=== PATIENT | female | born 1950 | race Caucasian/White ===

== ENCOUNTER 2021-10-05 10:15 | Emergency (ER) | payer OTHER ==
[~2021-10-05] VITALS: Ht 154.9 cm; Wt 59.0 kg
[~2021-10-05 10:15] MED LIST: ATOR20 PO; CALC.25 PO; HYDACE10B PO; LOSA50 PO; RISEDRONATE SOD35 M1 PO; TRAZ100 PO
[2021-10-05] MEDS ORDERED: SILVADENE20 G3 TOP (11:16)
== END 2021-10-05 12:17 | disposition home or self-care (01) ==
LOC: ER 10:15
DX: T24.212A Burn of second degree of left thigh, initial encounter (principal); T24.211A Burn of second degree of right thigh, initial encounter; T31.0 Burns involving less than 10% of body surface; I10 Essential (primary) hypertension; M19.90 Unspecified osteoarthritis, unspecified site; X10.0XXA Contact with hot drinks, initial encounter
CPT/HCPCS: 16020; 99283-25

== ENCOUNTER 2021-10-08 09:28 | Emergency (ER) | payer OTHER ==
[~2021-10-08] VITALS: Ht 162.6 cm; Wt 56.7 kg
[~2021-10-08 09:28] MED LIST changes: +SILVADENE20 G3 TOP
[2021-10-08] MEDS ORDERED: Xeroform Petro1 EAC3 TOP (10:17)
== END 2021-10-08 11:12 | disposition home or self-care (01) ==
LOC: ER 09:28
DX: T24.212D Burn of second degree of left thigh, subsequent encounter (principal); T31.0 Burns involving less than 10% of body surface; I10 Essential (primary) hypertension; K21.9 Gastro-esophageal reflux disease without esophagitis; E78.5 Hyperlipidemia, unspecified; Z88.6 Allergy status to analgesic agent; Z79.899 Other long term (current) drug therapy; X10.0XXD Contact with hot drinks, subsequent encounter
CPT/HCPCS: 99282-25

== ENCOUNTER 2021-11-09 05:34 | Day surgery (SDC) | payer OTHER ==
[~2021-11-09 05:34] MED LIST changes: +Xeroform Petro1 EAC3 TOP
== END 2021-11-09 23:56 | disposition home or self-care (01) ==
LOC: WOUND 05:34
DX: T24.211A Burn of second degree of right thigh, initial encounter (principal); X10.0XXA Contact with hot drinks, initial encounter; L89.309 Pressure ulcer of unspecified buttock, unspecified stage; L73.9 Follicular disorder, unspecified; Z88.6 Allergy status to analgesic agent
CPT/HCPCS: A9270; G0463

== ENCOUNTER 2021-11-30 07:41 | Day surgery (SDC) | payer OTHER | END 2021-11-30 23:59 | disposition home or self-care (01) | LOC: WOUND 07:41 | DX: T24.211D Burn of second degree of right thigh, subsequent encounter (principal); X08.8XXD Exposure to other specified smoke, fire and flames, subsequent encounter; L89.309 Pressure ulcer of unspecified buttock, unspecified stage; L73.9 Follicular disorder, unspecified | CPT/HCPCS: G0463 ==

== ENCOUNTER → 2022-05-17 | Outpatient (CLI) | payer OTHER | END | disposition home or self-care (01) | LOC: LAB 15:48 → LAB SHORT 15:48 | DX: R82.998 Other abnormal findings in urine (principal) | CPT/HCPCS: 87077; 87086; 87186 ==

== ENCOUNTER 2022-07-18 10:53 | Emergency (ER) | payer OTHER ==
[~2022-07-18] VITALS: Ht 160 cm; Wt 63.5 kg
[~2022-07-18 10:53] MED LIST changes: +CEPH500 PO; +OXYC5 PO
[2022-07-18 12:36] LABS: Free Thyroxine 1.3 ng/dL (0.70-1.60); Thyroid Stimulating Hormone 2.55 uIU/mL (0.360-4.800); Triiodothyronine, Free 2.32 pg/mL (2.18-3.98)
== END 2022-07-18 15:49 | disposition home or self-care (01) ==
LOC: ER 10:53
PROVIDERS: Emergency Medicine
DX: R44.0 Auditory hallucinations (principal); K21.9 Gastro-esophageal reflux disease without esophagitis; E78.5 Hyperlipidemia, unspecified; I12.9 Hypertensive chronic kidney disease with stage 1 through stage 4 chronic kidney disease, or unspecified chronic kidney disease; N18.9 Chronic kidney disease, unspecified; Z79.899 Other long term (current) drug therapy; Z88.6 Allergy status to analgesic agent
CPT/HCPCS: 36415; 70450; 84439; 84443; 84481; J7030

== ENCOUNTER → 2022-07-24 | Outpatient (CLI) | payer OTHER ==
[2022-07-24 16:07] LABS: Appearance, Urine Clear (Clear); Bilirubin, Urine Neg (Neg); Blood, Urine Neg (Neg); Color, Urine Yellow (P-Yellow); Glucose Qualitative, Urine Neg (Neg); Ketones, Urine Neg (Neg); Leukocyte Esterase, Urine Neg (Neg); Nitrite, Urine Neg (Neg); Protein, Urine 3+ (Neg); Specific Gravity, Urine 1.015 (1.003-1.022); Urobilinogen, Urine NORM (Normal)
[2022-07-24 16:40] LABS: White Blood Cells, Urine 0-2 /hpf (0-5)
[2022-07-24 16:41] LABS: Bacteria Few /hpf; Red Blood Cells, Urine 0-2 /hpf (0-2); Squamous Epithelial Cells Few /hpf (Few); Transitional Epithelial Cells Few /hpf (0-Rare); Yeast/Fungi Urine Rare /hpf
== END | disposition home or self-care (01) ==
LOC: LAB SHORT 11:30
PROVIDERS: Family Medicine
DX: N39.0 Urinary tract infection, site not specified (principal)
CPT/HCPCS: 81001; 87086

== ENCOUNTER 2022-08-07 13:01 | Inpatient (IN) | payer OTHER ==
[~2022-08-07] VITALS: Ht 165.1 cm; Wt 58.8 kg
[2022-08-07 13:31] LABS: BASOPHILS ABSOLUTE AUTO 0.03 K/mm3 (0.00-0.23); BASOPHILS PERCENT AUTO 0 % (0-2); EOSINOPHILS ABSOLUTE AUTO 0.03 K/mm3 (0.00-0.68); EOSINOPHILS PERCENT AUTO 0 % (0-6); Hematocrit 42.8 % (33.0-51.0); Hemoglobin 13.2 g/dL (11.5-16.0); IMMATURE GRAN ABSOLUTE AUTO 0.04 K/mm3 (0.00-0.10); IMMATURE GRAN PERCENT AUTO 1 % (0-1); LYMPHOCYTES ABSOLUTE AUTO 1.05 K/mm3 (0.84-5.20); LYMPHOCYTES PERCENT AUTO 13 % (21-46); MONOCYTES ABSOLUTE AUTO 0.85 K/mm3 (0.16-1.47); MONOCYTES PERCENT AUTO 10 % (4-13); Mean Corpuscular HGB 32.8 pg (26.0-34.0); Mean Corpuscular HGB Conc 30.8 g/dL (31.5-36.5); Mean Corpuscular Volume 106 fL (80-100); Mean Platelet Volume 9.4 fL (9.1-12.4); NEUTROPHILS ABSOLUTE AUTO 6.21 K/mm3 (1.96-9.15); NEUTROPHILS PERCENT AUTO 76 % (41-73); Platelet Count 155 K/mm3 (150-400); RDW Coefficient Variation 13.7 % (11.7-14.2); RDW Standard Deviation 53.6 fL (35.1-46.3); Red Blood Cell Count 4.03 M/mm3 (3.80-5.20); White Blood Cell Count 8.21 K/mm3 (4.00-11.30)
[2022-08-07 13:34] LABS: Source, Urine Fem Cath
[2022-08-07 13:48] LABS: Appearance, Urine Hazy (Clear); Bilirubin, Urine Neg (Neg); Blood, Urine Neg (Neg); Color, Urine Yellow (P-Yellow); Glucose Qualitative, Urine Neg (Neg); Ketones, Urine Neg (Neg); Leukocyte Esterase, Urine 2+ (Neg); Nitrite, Urine Neg (Neg); Protein, Urine 2+ (Neg); Specific Gravity, Urine 1.015 (1.003-1.022); Urobilinogen, Urine NORM (Normal)
[2022-08-07 13:49] LABS: Albumin, Blood 3.4 g/dL (3.4-5.0); Albumin/Globulin Ratio 1.2 (0.8-1.8); Bilirubin, Total 0.6 mg/dL (0.1-1.0); Bun/Creatinine Ratio 42.7 (12.0-20.0); Calcium, Blood 9.3 mg/dL (8.5-10.1); Creatinine, Blood 1.5 mg/dL (0.40-1.00); Globulin, Blood 2.8 g/dL (2.2-4.0); Potassium, Blood 4.8 mmol/L (3.5-5.5); Total Protein, Blood 6.2 g/dL (6.4-8.2)
[2022-08-07 14:07] LABS: Hyaline Casts 0-2 /lpf (0-2); White Blood Cells, Urine 25-50 /hpf (0-5)
[2022-08-07 14:08] LABS: Renal Epithelial Rare /hpf (0-Rare)
[2022-08-07 14:09] LABS: Bacteria Many /hpf; Red Blood Cells, Urine 0-2 /hpf (0-2); Squamous Epithelial Cells Few /hpf (Few)
--- NOTE | 2022-08-07 19:39 | NUR ---
SHIFT SUMMARY: GOT REPORT FROM GILBERT IN ED. PT ARRIVED VIA GURNEY AT 1750. TRANSFERRED TO THE BED AND VITALS TAKEN. PT ASSESSMENT AND MEDICATION HX COMPLETED. REPORT GIVEN TO FIRST AID TRAINER AND ASSUMED CARE AND WILL COMPLETE THE ADIMISSION PROCESS. BED IN LOW POSTION, BED ALRM DIRECTOR INTERNAL AUDIT LIGHT WITHIN REACH.
--- NOTE | 2022-08-08 04:15 | NUR ---
SHIFT SUMMARY PATIENT DENIES PAIN, NAUSEA, AND SHORTNESS OF BREATH. PATIENT ON BEDREST UNTIL PT/OT EVAL. PATIENT NPO PENDING SPEECH EVAL. ORIENTATION UNKNOWN DUE TO PATIENT NOT VERBALIZING OR ANSWERING QUESTIONS. PATIENT DOES NOT FOLLOW DIRECTIONS WELL. PATIENT DOES OCCASSIONALLY SHAKE HER HEAD "YES AND NO", BUT NOT CONSISTENTLY AFTER QUESTIONS. NEW IV IN RIGHT UPPER ARM, PATIENT PULLING AT OTHER IV. PATIENT SLEPT ON AND OFF. PATIENT COOPERATIVE WITH CARE.
--- NOTE | 2022-08-08 06:26 | NUR ---
PHYSICIAN CONTACT BUCKET WASH OPERATOR NOTIFIED THIS RN AT 0400 THAT PATIENT HAD NOT URINATED. THIS RN BLADDER SCANNED PATIENT, RESULT 1300MLS. MULTIPLE CALLS PLACED TO NIGHTSHIFT DOCTOR, NO ANSWER OR CALL BACK. CHARGE NURSE NOTIFIED. DID GET AHGRZEGROZ OF , NEW ORDERS FOR MARTINEZ CATHETER INSERTION. TOOK MULTIPLE ATTEMPTS BY DIFFERENT NURSES TO INSERT. ICU NURSE, JACOBY, PLACED CATHETER. GOOD URINE RETURN, SAMPLE SENT OFF.
[2022-08-08 06:27] LABS: Source, Urine Foley catheter
[2022-08-08 06:40] LABS: Bilirubin, Urine Neg (Neg); Blood, Urine Neg (Neg); Glucose Qualitative, Urine Neg (Neg); Ketones, Urine 1+ (Neg); Leukocyte Esterase, Urine 2+ (Neg); Nitrite, Urine Pos (Neg); Protein, Urine 2+ (Neg); Specific Gravity, Urine 1.015 (1.003-1.022); Urobilinogen, Urine NORM (Normal)
[2022-08-08 06:53] LABS: Amorphous Light (0-Heavy); Appearance, Urine Hazy (Clear); Bacteria Mod /hpf; Color, Urine Yellow (P-Yellow); Red Blood Cells, Urine Not Seen /hpf (0-2); Squamous Epithelial Cells Rare /hpf (Few); Transitional Epithelial Cells Few /hpf (0-Rare)
[2022-08-08 08:15] LABS: BASOPHILS ABSOLUTE AUTO 0.01 K/mm3 (0.00-0.23); BASOPHILS PERCENT AUTO 0 % (0-2); EOSINOPHILS ABSOLUTE AUTO 0.03 K/mm3 (0.00-0.68); EOSINOPHILS PERCENT AUTO 0 % (0-6); Hematocrit 44.9 % (33.0-51.0); Hemoglobin 14.2 g/dL (11.5-16.0); IMMATURE GRAN ABSOLUTE AUTO 0.05 K/mm3 (0.00-0.10); IMMATURE GRAN PERCENT AUTO 1 % (0-1); LYMPHOCYTES ABSOLUTE AUTO 0.97 K/mm3 (0.84-5.20); LYMPHOCYTES PERCENT AUTO 13 % (21-46); MONOCYTES PERCENT AUTO 7 % (4-13); Mean Corpuscular HGB 33.5 pg (26.0-34.0); Mean Corpuscular HGB Conc 31.6 g/dL (31.5-36.5); Mean Corpuscular Volume 106 fL (80-100); Mean Platelet Volume 9.5 fL (9.1-12.4); NEUTROPHILS ABSOLUTE AUTO 5.74 K/mm3 (1.96-9.15); NEUTROPHILS PERCENT AUTO 79 % (41-73); Platelet Count 148 K/mm3 (150-400); RDW Coefficient Variation 13.5 % (11.7-14.2); RDW Standard Deviation 53.4 fL (35.1-46.3); Red Blood Cell Count 4.24 M/mm3 (3.80-5.20)
[2022-08-08 08:44] LABS: Magnesium, Blood 1.8 mg/dL (1.6-2.4)
[2022-08-08 08:45] LABS: Albumin/Globulin Ratio 0.9 (0.8-1.8); Bilirubin, Total 0.7 mg/dL (0.1-1.0); Bun/Creatinine Ratio 48.9 (12.0-20.0); Calcium, Blood 8.4 mg/dL (8.5-10.1); Creatinine, Blood 0.88 mg/dL (0.40-1.00); Globulin, Blood 3.2 g/dL (2.2-4.0); Phosphorus, Blood 2.2 mg/dL (2.5-4.9); Potassium, Blood 4.7 mmol/L (3.5-5.5); Thyroid Stimulating Hormone 1.73 uIU/mL (0.360-4.800); Total Protein, Blood 6.2 g/dL (6.4-8.2)
[2022-08-08 08:48] LABS: International Normalized Ratio 1.08; Prothrombin Time Results 11.3 Sec (9.7-11.5)
--- NOTE | 2022-08-08 18:14 | NUR ---
SHIFT SUMMARY PT IS ALERT, UNABLE TO ASSESS ORIENTATION. PT HAS BEEN COOPERATIVE WITH CARE BUT REMAINED NON-VERBAL T/O DAY. PT DID FAIL ST SWALLOW EVAL AND REMAINS NPO, IV FLUIDS OF NS @75 INITIATED PER MD ORDER. ORAL CARE PROVIDED PER ST RECOMMENDATION, PT TOLERATED FAIRLY AND DOES APPEAR FEARFULL WITH ORAL SUCTION, FREQUENT REASSURANCE PROVIDED. CONTACT MADE WITH PT'S BROTHER (PEEWEE AGGARWAL [phone]) BY THIS RN AND DR. FOREMAN. PLANS DISCUSSED TO WATCH FOR IMPROVEMENT IN PTS COGNITIVE STATUS OVER THE NEXT 1-2 DAYS TO DETERMINE D/C PLANS AND POSSIBLE COMFORT CARE IF NO IMPROVEMENT NOTED. NO OTHER CHANGES TO REPORT THIS SHIFT.
--- NOTE | 2022-08-09 06:22 | NUR ---
SHIFT SUMMARY PATIENT DENIES PAIN, NAUSEA, AND SHORTNESS OF BREATH. PATIENT IS A 2P STAND PIVOT PER PT EVAL. PATIENT MORE INTERATIVE WITH STAFF THIS SHIFT. PATIENT STRICT NPO, PO MEDS HELD. PATIENT WOKE UP IN THE MIDDLE OF THE NIGHT YELLING "I DONT HAVE A PASSWORD. THEY KEEP ASKING FOR A PASSWORD." PATIENT HALLUCINATING PEOPLE IN HER ROOM, TALKING TO HER. ABLE TO CALM PATIENT DOWN AND REDIRECT HER EASILY. PATIENT SAID A FEW WORDS TO THIS RN. NO INCIDENT AFTER. MARTINEZ PATENT AND DRAINING PALE YELLOW URINE. PATIENT IS PLEASANT AND COOPERATIVE WITH CARE.
--- NOTE | 2022-08-09 18:18 | NUR ---
SHIFT SUMMARY- PT HAS HAD NO CHANGE T/O THE SHIFT, ST/OT UNABLE TO WORK WITH HER D/T BEING TOO SLEEPY. VS STABLE. PT MOSTLY NONRESPONSIVE, SHE MOANS AND MOVES IN RESPONSE TO STAFF, BUT OTHERWISE HAS NO SPOKEN OR REMAINED AWAKE FOR ANY LENGTH OF TIME. IV RUNNING NS MARTINEZ IN PLACE PATENT AND DRAINING, NO S&S OF DISTRESS NOTED AT THIS TIME. WILL CTM AND PASS ON TO NIGHT RN IN BEDSIDE REPORT.
--- NOTE | 2022-08-10 04:46 | NUR ---
SHIFT SUMMARY NO ACUTE CHANGES OVERNIGHT. PT SLEPT T/O SHIFT. MOVES/ REPOSITIONED Q2. PT MOANS AND OPENS EYES WITH REPOSITIONING. IV FLUIDS INFUSING. PT NPO. NO PO MEDS GIVEN, SEROQUEL PO AT BEDTIME HELD. PT REMAIN CALM AND COMFORTABLE. VSS. MARTINEZ IN PLACE, INTACT, OFF FLOOR AND GRAVITY. VOIDING DARK YELLOW URINE. CALL LIGHT WITHIN REACH. WILL CONTINUE TO MONITOR AND WILL PROVIDE REPORT TO ONCOMING NURSE.
[2022-08-10 05:28] LABS: BASOPHILS ABSOLUTE AUTO 0.01 K/mm3 (0.00-0.23); BASOPHILS PERCENT AUTO 0 % (0-2); EOSINOPHILS PERCENT AUTO 0 % (0-6); Hematocrit 42.2 % (33.0-51.0); Hemoglobin 13.5 g/dL (11.5-16.0); IMMATURE GRAN ABSOLUTE AUTO 0.04 K/mm3 (0.00-0.10); IMMATURE GRAN PERCENT AUTO 1 % (0-1); LYMPHOCYTES ABSOLUTE AUTO 0.83 K/mm3 (0.84-5.20); LYMPHOCYTES PERCENT AUTO 10 % (21-46); MONOCYTES ABSOLUTE AUTO 0.74 K/mm3 (0.16-1.47); MONOCYTES PERCENT AUTO 9 % (4-13); Mean Corpuscular HGB 33.3 pg (26.0-34.0); Mean Corpuscular Volume 104 fL (80-100); NEUTROPHILS ABSOLUTE AUTO 6.73 K/mm3 (1.96-9.15); NEUTROPHILS PERCENT AUTO 81 % (41-73); Platelet Count 152 K/mm3 (150-400); RDW Coefficient Variation 13.3 % (11.7-14.2); RDW Standard Deviation 51.8 fL (35.1-46.3); Red Blood Cell Count 4.05 M/mm3 (3.80-5.20); White Blood Cell Count 8.35 K/mm3 (4.00-11.30)
[2022-08-10 05:54] LABS: Albumin, Blood 2.7 g/dL (3.4-5.0); Bun/Creatinine Ratio 38.3 (12.0-20.0); C-REACTIVE PROTEIN, EXT RANGE 4.4 mg/dL (0.000-0.300); Calcium, Blood 7.8 mg/dL (8.5-10.1); Creatinine, Blood 0.71 mg/dL (0.40-1.00); Globulin, Blood 2.8 g/dL (2.2-4.0); Potassium, Blood 3.8 mmol/L (3.5-5.5); Total Protein, Blood 5.5 g/dL (6.4-8.2)
--- NOTE | 2022-08-10 16:31 | NUR ---
SHIFT SUMMARY PT SLEEPING, RESTING QUIETLY DURING SHIFT REPORT. PT HAS MINIMAL RESPONSE MOST OF THE TIME, BUT WILL MUMBLE A FEW WORDS IF WOKE UP. REMAINS NPO; UNABLE TO PARTICIPATE IN SP EVAL. DR DUDLEY IN TO SEE PT THIS AM; IVF'S CHANGED. PT'S BROTHER CALLED FOR UPDATE, PT RESPONDED TO BROTHER'S NAME. PER REPORT, PT LIVING ALONE WITH SEWER PIPE SORTER COMING IN TO HELP. HX OF COGNITIVE IMPAIRMENT. ORAL CARE DONE PER ORDERS. BED BATH GIVEN AND LINEN CHANGED. NO S/SX'S OF DISTRESS NOTED. BED ALARM ON FOR SAFETY. CALL LT IN REACH.
--- NOTE | 2022-08-10 18:25 | NUR ---
PT WOKE ABOUT AN HOUR AGO VERY AGITATED. DIFFICULT TO UNDERSTAND. PT DID MAKE OUT THAT SHE WANTED HER DENTURES OFF THE SINK, YELLING "TEETH". PT ALSO COMMUNICATED THAT SHE WAS "HUNGRY". SP TX UNABLE TO WAKE PT TO ATTEMPT EVAL EARLIER TODAY. PT NOW RESTING QUIETLY AGAIN AT THIS TIME.
--- NOTE | 2022-08-11 05:01 | NUR ---
SHIFT SUMMARY NO ACUTE EVENTS OVERNGIHT. PT ON BEDREST. WAKES UP AND STARTS SCREAMING AND LAUGHING INTERMITTENTLY OVERNIGHT. WHEN I ASSESS PT AND TALK TO HER SHE WOULD NOT ANSWER BACK, SHE REMAINS HER EYES CLOSE. UNABLE TO FOLLOW COMMANDS. MOANS WITH REPOSITIONING. NPO. LR INFUSING AT 125ML. HEPARIN GIVEN LAST NIGHT. MARTINEZ IN PLACE, INTACT, PATENT AND OFF FLOOR. ATTEMPT ORAL CARE BUT PT REFUSE, KEPT HER MOUTH CLOSE. CALL LIGHT WITHIN REACH. WILL PROVIDE REPORT TO ONCOMING NURSE.
[2022-08-11 05:10] LABS: BASOPHILS ABSOLUTE AUTO 0.03 K/mm3 (0.00-0.23); BASOPHILS PERCENT AUTO 0 % (0-2); EOSINOPHILS PERCENT AUTO 0 % (0-6); Hematocrit 38.1 % (33.0-51.0); Hemoglobin 12.2 g/dL (11.5-16.0); IMMATURE GRAN ABSOLUTE AUTO 0.04 K/mm3 (0.00-0.10); IMMATURE GRAN PERCENT AUTO 0 % (0-1); LYMPHOCYTES ABSOLUTE AUTO 0.92 K/mm3 (0.84-5.20); LYMPHOCYTES PERCENT AUTO 10 % (21-46); MONOCYTES ABSOLUTE AUTO 0.93 K/mm3 (0.16-1.47); MONOCYTES PERCENT AUTO 10 % (4-13); Mean Corpuscular HGB 33.5 pg (26.0-34.0); Mean Corpuscular Volume 105 fL (80-100); Mean Platelet Volume 9.3 fL (9.1-12.4); NEUTROPHILS ABSOLUTE AUTO 7.12 K/mm3 (1.96-9.15); NEUTROPHILS PERCENT AUTO 79 % (41-73); Platelet Count 132 K/mm3 (150-400); RDW Coefficient Variation 13.4 % (11.7-14.2); RDW Standard Deviation 51.8 fL (35.1-46.3); Red Blood Cell Count 3.64 M/mm3 (3.80-5.20); White Blood Cell Count 9.04 K/mm3 (4.00-11.30)
[2022-08-11 05:41] LABS: Albumin, Blood 2.3 g/dL (3.4-5.0); Albumin/Globulin Ratio 0.8 (0.8-1.8); Bilirubin, Total 0.7 mg/dL (0.1-1.0); Calcium, Blood 7.8 mg/dL (8.5-10.1); Creatinine, Blood 0.66 mg/dL (0.40-1.00); Globulin, Blood 2.8 g/dL (2.2-4.0); Potassium, Blood 3.5 mmol/L (3.5-5.5); Total Protein, Blood 5.1 g/dL (6.4-8.2)
[2022-08-11 06:10] LABS: HBSAG SCREEN Negative (Negative); HCV AB 0.3 (0.0-0.9); HEP B CORE AB, TOT Negative (Negative)
--- NOTE | 2022-08-11 17:39 | NUR ---
LUSTERER, BARBARA ARIAS, CALLED TODAY TO CK ON PT. UPDATE GIVEN. C/G REPORTED THAT PT DOES NOT NORMALLY TALK TO PEOPLE THAT SHE DOES NOT KNOW. PT HAS ALSO SHOWN EXAMPLES OF PRETENDING TO BE ASLEEP WHEN STAFF COMING IN TO PROVIDE CARE. PT DID GET UP TO BSC TODAY WITH 2P ASSIST, FOR EX LRG HARD BM. PT THEN WENT BACK TO BED AND HAS RESTED QUIETLY TO PRESENT.
--- NOTE | 2022-08-11 17:43 | NUR ---
PT SAID FEW WORDS, AND WITHDRAWN. PT BECAME RESTLESS, CALLING OUT. PT ASKED FOR BATHRROM. PT WAS TRANSFERED FROM BED TO [facility]. PT HAD A LARGE, HARD BOWEL MOVEMENT. PT TRANSFERED BACK TO BED AND PT WAS CALM AND QUIET. PT COMPLETED LR FROM PREVIOUS SHIFT, RECEVIED D5W/2NS KCL, AND NOW INFUSING POTASSIUM CHLORIDE. PT HAS BEEN RESTING IN BED MOST OF THE SHIFT. PT RECEVIED ORAL CARE Q4HRS THROUGHOUT THE SHIFT. PT IS IN BED WITH CALL LIGHT WITHIN REACH.
--- NOTE | 2022-08-12 04:36 | NUR ---
SHIFT SUMMARY 72 YR F ADMITTED ON 08/07/22 FOR UTI AND ALTERED MENTAL STATUS. DNR. NO ACUTE CHANGES THIS SHIFT. PT SLEPT FOR MOST OF THE SHIFT BUT WAS WOKEN UP PERIODICALLY THROGHT THE SHIFT FOR ORAL CARE AND REPOSITIONING. SHE WAS NONVERBAL THROUGHOUT THE SHIFT BUT SHE DID MOAN WHEN SHE WAS NOT PLEASED WITH PERSONAL CARE.
[2022-08-12 05:23] LABS: BASOPHILS ABSOLUTE AUTO 0.01 K/mm3 (0.00-0.23); BASOPHILS PERCENT AUTO 0 % (0-2); EOSINOPHILS PERCENT AUTO 0 % (0-6); Hematocrit 40.3 % (33.0-51.0); IMMATURE GRAN ABSOLUTE AUTO 0.05 K/mm3 (0.00-0.10); IMMATURE GRAN PERCENT AUTO 0 % (0-1); LYMPHOCYTES ABSOLUTE AUTO 0.66 K/mm3 (0.84-5.20); LYMPHOCYTES PERCENT AUTO 6 % (21-46); MONOCYTES PERCENT AUTO 12 % (4-13); Mean Corpuscular HGB 33.1 pg (26.0-34.0); Mean Corpuscular HGB Conc 32.3 g/dL (31.5-36.5); Mean Corpuscular Volume 103 fL (80-100); Mean Platelet Volume 9.2 fL (9.1-12.4); NEUTROPHILS ABSOLUTE AUTO 9.34 K/mm3 (1.96-9.15); NEUTROPHILS PERCENT AUTO 82 % (41-73); Platelet Count 129 K/mm3 (150-400); RDW Coefficient Variation 13.2 % (11.7-14.2); RDW Standard Deviation 49.4 fL (35.1-46.3); Red Blood Cell Count 3.93 M/mm3 (3.80-5.20); White Blood Cell Count 11.46 K/mm3 (4.00-11.30)
[2022-08-12 05:44] LABS: Albumin, Blood 2.3 g/dL (3.4-5.0); Albumin/Globulin Ratio 0.8 (0.8-1.8); Bilirubin, Total 0.8 mg/dL (0.1-1.0); Bun/Creatinine Ratio 27.9 (12.0-20.0); Calcium, Blood 7.1 mg/dL (8.5-10.1); Creatinine, Blood 0.5 mg/dL (0.40-1.00); Globulin, Blood 2.9 g/dL (2.2-4.0); Total Protein, Blood 5.2 g/dL (6.4-8.2)
--- NOTE | 2022-08-12 18:28 | NUR ---
SHIFT SUMMARY PATIENT LETHARGIC IN AM BUT MENTATION IMPROVED THROUGHOUT SHIFT. LIFT UP TO RECLINER. INCONTINENT, ATTENDS CHANGED PRN. BM THIS SHIFT. ORAL CARE Q4 HRS. TOLERATING SMALL SIPS OF WATER AND A COUPLE BITES OF PUREE MEALS. PLAN FOR DISCHARGE TO SNF FOR REHAB. ROUTINE IV FLUIDS AND ABX. 2 PERSON MAX ASSIST TO ATTEMPT TO STAND AT BEDSIDE. UNABLE TO BEAR WEIGHT ON LEGS AT THIS TIME.
--- NOTE | 2022-08-13 04:28 | NUR ---
SHIFT SUMMARY 72 YR F ADMITTED ON 08/07/22 FOR UTI AND CONFUSION. DNR. PT WAS HAPPY AND PLEASANT AT BEGINNING OF SHIFT AND WAS MORE VERBAL THAN SHE WAS LAST NIGHT. AT APPROX 0000 SHE BEGAN TO TELL THIS NURSE THAT WE WERE GOING TO "GET CAUGHT" BECAUSE "THAT GIRL OVER THERE WON'T SHUT UP". SHE INSISTED THAT SHE WANTED TO PUT PANTS ON SO THAT SHE WOULD NOT BE CAUGHT IN HER UNDERWEAR. IT WAS EXPLAINED TO HER SEVERAL TIMES THAT SHE WAS SAFE AND THAT WE WEREN'T GOING TO GET CAUGHT BECAUSE WE ARE NOT DOING ANYTHING WRONG. SHE REPEATED HER CONCERNS OVER AND OVER UNTIL SHE FINALLY FELL ASLEEP BRIEFLY AT APPROX 0245. WHEN SHE WOKE UP AT APPROX 0400 SHE DID NOT MENTION IT AGAIN.
[2022-08-13 05:40] LABS: BASOPHILS ABSOLUTE AUTO 0.01 K/mm3 (0.00-0.23); BASOPHILS PERCENT AUTO 0 % (0-2); EOSINOPHILS ABSOLUTE AUTO 0.01 K/mm3 (0.00-0.68); EOSINOPHILS PERCENT AUTO 0 % (0-6); Hematocrit 40.5 % (33.0-51.0); Hemoglobin 12.9 g/dL (11.5-16.0); IMMATURE GRAN ABSOLUTE AUTO 0.07 K/mm3 (0.00-0.10); IMMATURE GRAN PERCENT AUTO 1 % (0-1); LYMPHOCYTES ABSOLUTE AUTO 1.09 K/mm3 (0.84-5.20); LYMPHOCYTES PERCENT AUTO 10 % (21-46); MONOCYTES PERCENT AUTO 11 % (4-13); Mean Corpuscular HGB 33.3 pg (26.0-34.0); Mean Corpuscular HGB Conc 31.9 g/dL (31.5-36.5); Mean Corpuscular Volume 105 fL (80-100); Mean Platelet Volume 9.8 fL (9.1-12.4); NEUTROPHILS ABSOLUTE AUTO 9.04 K/mm3 (1.96-9.15); NEUTROPHILS PERCENT AUTO 79 % (41-73); Platelet Count 128 K/mm3 (150-400); RDW Coefficient Variation 13.4 % (11.7-14.2); RDW Standard Deviation 51.2 fL (35.1-46.3); Red Blood Cell Count 3.87 M/mm3 (3.80-5.20); White Blood Cell Count 11.42 K/mm3 (4.00-11.30)
[2022-08-13 05:58] LABS: Bun/Creatinine Ratio 23.8 (12.0-20.0); Calcium, Blood 7.7 mg/dL (8.5-10.1); Creatinine, Blood 0.63 mg/dL (0.40-1.00); Potassium, Blood 3.5 mmol/L (3.5-5.5)
--- NOTE | 2022-08-13 14:16 | NUR ---
CAREGIVER WAS IN THIS AM TO SEE THE PATIENT. CAREGIVER ELTON STATES THAT THE PATIENT HAS CHANGED-DECLINED SINCE YESTERDAY. CAREGIVER STATED THAT A MONTH AGO, THE PATIENT WAS ALERT, WALKING WITH A WALKER, HAVING NORMAL CONVERSATIONS AND THEN SHE WAS DIAGNOSED WITH A UTI. PROVIDER WAS UPDATED AND DOES THINK THAT THE PATIENT IS PRESENTING THE SAME TODAY SHE HAD YESTERDAY. PT WAS HERE AND WORKED WITH THE PATIENT. THE PATIENT REPORTED BACK PAIN (LOWER BACK PAIN). PT WASN'T ABLE TO DO ALOT DUE TO PATEINTS PAIN, AND INABILITY TO COMMUNICATE CLEARLY. THIS FISHER SPEAR WILL PROVIDE PRN IF ABLE FOR BACK PAIN.
--- NOTE | 2022-08-13 17:20 | NUR ---
PLEASE SEE NURSE NOTE FOR COLLATERAL INFO FROM CAREGIVER, AND EARLIER SHIFT BEHAVIORS. PATIENT LETHARGIC, CONFUSED, APPEARS TO BE HALLUCINATING-AUDITORY AND VISUAL. PATIENT COMPLAINED OF BACK PAIN. ORDER OBTAINED FOR TYLENOL, PATIENT WAS THEN TO LETHARGIC TO TAKE THE TYLENOL. PATIENT IS RESTING ON BED. ONLY BITES OF FOOD HAVE BEEN TAKEN. WHEN SHE IS AWAKE, SHE WILL TALK AT TIMES BUT SENTENCES ARE BROKEN AND SHE DOESN'T FINISH WHAT SHE IS TRYING TO SAY. SPEECH SOUNDS SLURRED. WILL ATTEMPT AGAIN TO OFFER TYLENOL.
--- NOTE | 2022-08-14 04:14 | NUR ---
DENTAL MANAGER SUMMARY NO ACUTE CHANGES. PT IS MOSTLY NONVERBAL; LIMITED ABILITY TO FOLLOW DIRECTION AND RESPOND CLEARLY. STARTED NEW IV ON LEFT FORARM F/POT CHLORIDE; RUN AT 50MLS HR. PT DID NOT RECEIVE ORAL SEROQUEL BECAUSE SHE WAS NOT ALERT ENOUGH TO SWALLOW. PT DENIED PAIN WHEN ASKED. BED IN LOW POSOTION; ALARM ON.
--- NOTE | 2022-08-14 10:13 | NUR ---
PATIENT SLEEPING THIS MORNING, THROUGH BREAKFAST TIME. SHE WAS OFFERED APPLESAUCE, AND DID NOT SWALLOW THE SMALL AMOUNT PLACED IN MOUTH. SHE WAS ANSWERING QUESTIONS WITH HEAD NOD(YES) OR HEAD SHAKE (NO). SHE AGREED THAT SHE WAS COMFORTABLE, AND SHOOK HEAD NO WHEN I ASKED HER IF SHE NEEDED ANYTHING. HER ASSESSMENT WAS DONE, HEPARIN GIVEN. SHE IS WEARING HEAL PROTECTOR FOAM BOOTS.
--- NOTE | 2022-08-14 18:21 | NUR ---
PATIENT SLEPT MOST OF THE SHIFT, WAKING DURING THE AFTERNOON AND YELLING RATHER LOUDLY. SHE DID NOT YES WHEN SHE WAS ASKED ABOUT PAIN. SHE STATED THE PAIN IS IN HER LEGS. SHE WAS GIVEN AND DID TAKE 650MG TYLENOL CRUSHED IN APPLE SAUCE. SHE HAS FLUIDS RUNNING D5 1/2 10MeQ K. AND NEW ORDERS WERE ACKNOWLEGED THIS SHIFT. ROCEPHIN IS DISCONTINUED AT THIS TIME.
--- NOTE | 2022-08-14 19:52 | NUR ---
RADIOLOGY SCHEDULER REPORTED ELEVATION OF BP AND TEMP TO THIS RN. BP 126/111 AND TEMP 100.8. RADIOLOGY SCHEDULER REPORTED PT HAD BLANKETS PILED ON HER. BLANKETS REMOVED DOWN TO SHEET AND WILL RECHECK VS AND NOTIFY HOSPITALIST IF APPROPRIATE.
--- NOTE | 2022-08-15 00:07 | NUR ---
DURING THIS RN'S SHIFT ASSESSMENT, PT NOTED TO HAVE 2+ NON-PITTING EDEMA IN RIGHT HAND AND FOREARM. NO PREVIOUS DOCUMENTATION IN CHART OF HAND EDEMA OR TRAUMA TO HAND, WHICH IS QUITE CONTRACTED. PT MOSTLY NON-VERBAL AND/OR NON-COMPLIANT WITH VERBAL COMMUNICATION AND DOES NOT ANSWER WHEN ASKING IF THERE IS PAIN. LOW-GRADE TEMP 100.8. REFUSING PRN APAP. DR WHITLOCK NOTIFIED. ORDERS FOR RT HAND/ARM XR AND US. CALL IF URGENT RESULTS.
--- NOTE | 2022-08-15 05:31 | NUR ---
LENO SEWER SUMMARY ALERT WITHOUT ORIENTATION. MOSTLY NONVERBAL WITH SUDDEN OUTBURSTS WHEN AGITATED. PRN SEROQUEL ADMINISTERED FOR AUDITORY AND VISUAL HALLUCINATIONS. LOW-GRADE FEVER AND C/O PAIN BUT UNABLE TO VERBALIZE WHERE THE PAIN WAS. WHEN ADMINISTERING APAP, SHE REFUSED TO TAKE IT. RIGHT HAND NOTED TO BE SWOLLEN WITHOUT REDNESS OR HEAT. XR DONE TO R/O Fx OR DISLOCATION; RESULTS PENDING INTERPRETATION. VENOUS DUPLEX Rx'D TO BE DONE THIS AM TO R/O DVT. C/O PAIN IN HAND BUT DECLINES TO TAKE APAP. MARTINEZ PATENT AND DRAINING NEAL, MALODOROUS URINE TO GRAVITY. WILL REPORT TO ONCOMING RN.
[2022-08-15 05:34] LABS: BASOPHILS ABSOLUTE AUTO 0.01 K/mm3 (0.00-0.23); BASOPHILS PERCENT AUTO 0 % (0-2); EOSINOPHILS PERCENT AUTO 0 % (0-6); Hematocrit 41.1 % (33.0-51.0); Hemoglobin 13.2 g/dL (11.5-16.0); IMMATURE GRAN ABSOLUTE AUTO 0.06 K/mm3 (0.00-0.10); IMMATURE GRAN PERCENT AUTO 1 % (0-1); LYMPHOCYTES ABSOLUTE AUTO 0.76 K/mm3 (0.84-5.20); LYMPHOCYTES PERCENT AUTO 6 % (21-46); MONOCYTES ABSOLUTE AUTO 1.63 K/mm3 (0.16-1.47); MONOCYTES PERCENT AUTO 13 % (4-13); Mean Corpuscular HGB 33.5 pg (26.0-34.0); Mean Corpuscular HGB Conc 32.1 g/dL (31.5-36.5); Mean Corpuscular Volume 104 fL (80-100); Mean Platelet Volume 9.6 fL (9.1-12.4); NEUTROPHILS ABSOLUTE AUTO 9.75 K/mm3 (1.96-9.15); NEUTROPHILS PERCENT AUTO 80 % (41-73); Platelet Count 129 K/mm3 (150-400); RDW Coefficient Variation 13.2 % (11.7-14.2); RDW Standard Deviation 50.4 fL (35.1-46.3); Red Blood Cell Count 3.94 M/mm3 (3.80-5.20); White Blood Cell Count 12.21 K/mm3 (4.00-11.30)
[2022-08-15 06:20] LABS: Albumin, Blood 1.9 g/dL (3.4-5.0); Albumin/Globulin Ratio 0.5 (0.8-1.8); Bilirubin, Total 0.8 mg/dL (0.1-1.0); Calcium, Blood 7.2 mg/dL (8.5-10.1); Creatinine, Blood 0.57 mg/dL (0.40-1.00); Globulin, Blood 3.5 g/dL (2.2-4.0); Potassium, Blood 3.4 mmol/L (3.5-5.5); Thyroid Stimulating Hormone 1.61 uIU/mL (0.360-4.800); Total Protein, Blood 5.4 g/dL (6.4-8.2)
--- NOTE | 2022-08-15 16:32 | NUR ---
pt placed on comfort care per phsycian orders pt nonverbal cofort pillow and blanket placed. py muscles tight tremulous selling of extremities. Will call family for follow up.
--- NOTE | 2022-08-15 16:53 | NUR ---
Called brother to review comfort care and update him on her care needs.
--- NOTE | 2022-08-15 16:59 | NUR ---
SHIFT SUMMARY PT [id number] (SELF) PT PRIMARILY NON VERBAL WITH OCCASIONAL GARBLED SPEECH. PT WAS DROWSY THIS AM. PT FAILED SPEECH EVAL AND WAS MADE NPO. PT AND OT IN FOR EVAL AND TREATMENT. PT HAD EEG AND VENOUS DUPLEX (R EXTREMITY) THIS SHIFT. PT HAD 3 EPISODES OF DIARRHEA TODAY. MARTINEZ DRAINING NEAL URINE TO GRAVITY. IV FLUIDS DC'D. PT TRANSITIONED TO COMFORT CARE THIS EVENING. MEDICATED FOR PAIN AND AGITATION PER EMAR. PALLIATIVE CARE NURSES IN ROOM AT THIS TIME. PT HAD BED BATH AND IS CURRENTLY RESTING WITH CALL LIGHT IN REACH.
--- NOTE | 2022-08-16 05:11 | NUR ---
SHIFT SUMMARY PATIENT MEDICATED ONCE PER EMAR FOR PAIN, RESPONDED WELL AND SLEPT MOST OF THE NIGHT. NO ACUTE ISSUES NOTED. CALL LIGHT WITHIN REACH. REPORT GIVEN TO ONCOMING RN.
--- NOTE | 2022-08-16 07:59 | NUR ---
PT REPOSTIONED, MEDICATED WITH MORPHINE AND LORAZEPAM. PT HAS SOFT MUSIC PLAYING FOR COMFORT.
--- NOTE | 2022-08-16 10:43 | NUR ---
PT MEDICATED WITH MORPHINE, GIVEN A BED BATH BY LUIGI MIX AND HUMBLE BOWMAN.
--- NOTE | 2022-08-16 14:11 | NUR ---
pt medicated per emar protocol, pt RR 22 and moaning.
--- NOTE | 2022-08-16 17:08 | NUR ---
SHIFT SUMMARY: PT CALM AND QUIET MOST OF THE SHIFT. IN THE BEGINNING OF THE SHIFT DURING COMFORT CARE ASSESSMENT PT GRIMACING AND MOANING. PT MEDICATED PER EMAR PROTOCOL. PT TURNED FREQUENTLY AND GIVEN A BED BATH. DURING END OF SHIFT PT IS CALM AND QUIET. PT RECEVIED VISTERS THROUGHOUT THE SHIFT. PT IS CALM, QUIET WITH RR 17. PT IN BED WITH CALL LIGHT WITHIN REACH AND CALMING MUSIC PLAYING.
--- NOTE | 2022-08-16 17:28 | NUR ---
THIS BEVERAGE SPECIALIST HAS REVIEWED ALL NOTES AND ASSESSMENTS BY COLBY SAAVEDRA AND AGREES WITH THEM.
--- NOTE | 2022-08-17 04:55 | NUR ---
SHIFT SUMMARY A/OX4. COMFORT CARE CONTINUED. REPOSITIONED Q2H. MEDICATED FOR PAIN X1, TOLERATED WELL. SLEPT MOST OF THE NIGHT. WILL CONTINUE TO MONITOR AND REPORT TO ON COMING N,
--- NOTE | 2022-08-17 10:10 | NUR ---
Comfort care visit. Pt unresponsive to voice or touch. Skin warm/dry. Resp even 10-12/min, shallow. No UO noted in zaragoza drainage bag. Pt appears comfortable. I will request [facility] volunteer visit today. No family at bedside.
--- NOTE | 2022-08-18 12:31 | NUR ---
Comfort care visit. No visitors at bedside. Pt lying with eyes open but not focusing on anything. She is unresponsive to voice or touch. Resp even and unlabored. Pt appears comfortable currently.
--- NOTE | 2022-08-18 18:27 | NUR ---
SHIFT SUMMARY PT SOMNOLENT THIS SHIFT, MEDICATED PER EMAR WITH GOOD RESULTS. IS COMFORT CARE. PT REMAINS NPO, F/C INTACT & PATENT.
--- NOTE | 2022-08-19 02:41 | NUR ---
PATIENT IS REPOSITIONED OFTEN DURING NOC. SHE IS RESTING COMFORTABLY AT THIS TIME. BREATHING EVEN AND UNLABORED NADN. NO FAMILY PRESENT. MARTINEZ CATH TO DOWN DRAIN. CEZAR CARE COMPLETED. WILL CONTINUE TO MONITOR THIS PATIENT CLOSELY FOR ANY WANTS OR NEEDS THAT COME UP.
--- NOTE | 2022-08-19 11:22 | NUR ---
Comfort care visit earlier this am. Pt sleeping and appears peaceful and comfortable. CM working on hospice placement and keeping brother updated. Pt did not wake to voice or gentle touch. She was wakeful but unresponsive when I was visiting yesterday.
--- NOTE | 2022-08-19 16:48 | NUR ---
SHIFT SUMMARY PT ON COMFORT CARE. PT IS BEDBOUND AND NONVERBAL. PT CHANGED AND/OR REPOSITIONED Q2 HOURS. PT OPENS EYES TO VERBAL STIMULI. SOME GRIMACING AND MOANING NOTED DURING THE DAY. PT GIVEN PAIN/ANXIETY MEDS x1 THIS SHIFT. PT HAD FAMILY FRIEND IN ROOM TODAY. PT CURRENTLY RESTING IN BED, APPEARING COMFORTABLE AT THIS TIME. CALL LIGHT IN REACH.
--- NOTE | 2022-08-20 04:09 | NUR ---
PT HAS BEEN REFUSING ORAL CARE, SHAKES HER HEAD NO.
--- NOTE | 2022-08-20 05:05 | NUR ---
SHIFT SUMMARY - PT IS A COMFORT CARE PT. PT DECLINED ORAL CARE, THE LAST TIME SHAKING HER HEAD NO TO THIS. PT POSITIONED FOR COMFORT. PT'S SKIN COLOR IS DUSKY. WILL CONTINUE TO MONITOR PT UNTIL AM SHIFT CHANGE. CALL LIGHT WITHIN REACH. BED IN LOW POSITION.
--- NOTE | 2022-08-20 09:27 | NUR ---
PATIENT APPEARS SLEEPING AT THIS TIME. NO FACIAL GRIMACES AND BREATHING EVENLY.
[2022-08-20 09:50] LABS: SARS-Cov-2 (COVID-19) PCR, MMC NEGATIVE (NEGATIVE)
[2022-08-20] MEDS ORDERED: ATROPINE SULFATE2 M1 SL (11:18)
[2022-08-20] MEDS ORDERED: OXYC5 PO (11:18)
[2022-08-20] MEDS ORDERED: HALOPERIDOL2 MG/1 M1 PO (11:20)
[2022-08-20] MEDS ORDERED: Ativan1 MG PO (11:20)
[2022-08-20] MEDS ORDERED: PHENERGAN25 MG PR (11:21)
[2022-08-20] MEDS ORDERED: TRANSDERM-SCOP1 EA12 TD (11:21)
--- NOTE | 2022-08-20 14:04 | NUR ---
PATIENT DISCHARGE TO [facility]. DISCHARGE INSTRUCTION PACKET GIVEN TO FINANCE INTERN AT [facility]. PATIENT WAS TRANSPORTED VIA GURNEY AND LEFT AT AROUND 1300. THIS RN MADE MULTIPLE ATTEMPTS TO CALL [facility] FOR REPORT BUT NO ANSWER, LEFT A MESSAGE TO GIVE THIS RN A CALL BACK.
== END 2022-08-20 13:05 | disposition hospice, inpatient (51) | DRG 57 ==
LOC: ER 13:01 → MEDS 15:56
PROVIDERS: Emergency Medicine; Family Medicine; Hospitalist; Internal Medicine; Specialist; ADMIT Family Medicine
DX: G31.83 Neurocognitive disorder with Lewy bodies (principal); N17.9 Acute kidney failure, unspecified; E72.20 Disorder of urea cycle metabolism, unspecified; N39.0 Urinary tract infection, site not specified; R44.0 Auditory hallucinations; E87.0 Hyperosmolality and hypernatremia; F02.81 Dementia in other diseases classified elsewhere, unspecified severity, with behavioral disturbance; G93.49 Other encephalopathy; F01.51 Vascular dementia, unspecified severity, with behavioral disturbance; Z66 Do not resuscitate; Z51.5 Encounter for palliative care; Z20.822 Contact with and (suspected) exposure to COVID-19; R74.01 Elevation of levels of liver transaminase levels; I10 Essential (primary) hypertension; M19.90 Unspecified osteoarthritis, unspecified site; K21.9 Gastro-esophageal reflux disease without esophagitis; E78.00 Pure hypercholesterolemia, unspecified; K80.20 Calculus of gallbladder without cholecystitis without obstruction; R45.1 Restlessness and agitation; M81.0 Age-related osteoporosis without current pathological fracture; G89.4 Chronic pain syndrome; E86.0 Dehydration; R44.1 Visual hallucinations; B96.20 Unspecified Escherichia coli [E. coli] as the cause of diseases classified elsewhere; Z91.14 Patient's other noncompliance with medication regimen; Z88.8 Allergy status to other drugs, medicaments and biological substances; Z79.2 Long term (current) use of antibiotics; Z79.891 Long term (current) use of opiate analgesic; Z79.899 Other long term (current) drug therapy
CPT/HCPCS: 36415; 70551; 73100; 76705; 80048; 80053; 81001; 82140; 82330; 82607; 82746; 83690; 83735; 83880; 83930; 84100; 84443; 85025; 85610; 85651; 85730; 86140; 86704; 86708; 86803; 87040; 87077; 87086; 87186; 87340; 92526; 92610; 93005; 93010; 93306; 93971; 95819; 96365; 97110; 97129; 97162; 97166; 97530; 97535; 99285-25; A9270; J0696; J1644; J2270; J3475; J3480; J7030; J7042; J7050; J7060; J7120; P9612; U0004